=== PATIENT | male | born 2000 | race Caucasian/White ===

== ENCOUNTER 2020-02-27 21:52 | Emergency (ER) | payer OTHER ==
[~2020-02-27] VITALS: Ht 180.3 cm; Wt 79.5 kg
[2020-02-27] MEDS ORDERED: normal saline 1000ML IV soln IVB ONE (22:05)
[2020-02-27] MEDS ORDERED: LORazepam 2 mg/ml vial IV ONE ×2 (22:05→22:55)
[2020-02-27 22:23] LABS: BASOPHILS # (AUTO) 0.1 X10'3 (0-0.2); BASOPHILS % (AUTO) 0.7 % (0-1); EOSINOPHILS # (AUTO) 0.4 X10'3 (0-0.9); EOSINOPHILS % (AUTO) 2.9 % (0-6); HEMATOCRIT 46.5 % (42.0-52.0); HEMOGLOBIN 15.5 g/dl (14.0-17.9); LYMPHOCYTES # (AUTO) 4.9 X10'3 (1.1-4.8); LYMPHOCYTES % (AUTO) 37.6 % (21-51); MEAN CORPUSCULAR HEMOGLOBIN 29.8 PG (27.0-31.0); MEAN CORPUSCULAR HGB CONC 33.3 g/dL (33.0-36.5); MEAN CORPUSCULAR VOLUME 89.3 FL (78-98); MEAN PLATELET VOLUME 8.1 FL (7.4-10.4); MONOCYTES # (AUTO) 1.2 X10'3 (0-0.9); MONOCYTES % (AUTO) 9.4 % (2-12); NEUTROPHILS # (AUTO) 6.4 X10'3 (1.8-7.7); NEUTROPHILS % (AUTO) 49.4 % (42-75); PLATELET COUNT 332 X10'3 (140-440); RED BLOOD COUNT 5.21 X10'6 (4.70-6.10); RED CELL DISTRIBUTION WIDTH 13.3 % (11.5-14.5)
[2020-02-27 22:45] LABS: ALANINE AMINOTRANSFERASE 21 U/L (12-78); ALBUMIN 4.7 G/DL (3.4-5.0); ALBUMIN/GLOBULIN RATIO 1.5 (1.1-1.5); ALKALINE PHOSPHATASE 63 IU/L (20-180); ANION GAP 17 (8-16); ASPARTATE AMINO TRANSFERASE 17 U/L (10-37); BILIRUBIN,TOTAL 0.7 MG/DL (0.1-1.0); BLOOD UREA NITROGEN 15 MG/DL (7-18); BUN/CREATININE RATIO 13.8 (5.4-32.0); CALCIUM 8.8 MG/DL (8.5-10.1); CHLORIDE 108 MMOL/L (99-107); CREATININE 1.09 MG/DL (0.60-1.10); GLUCOSE 99 MG/DL (70-104); POTASSIUM 3.6 MMOL/L (3.5-5.1); SODIUM 145 MMOL/L (135-145); TOTAL CARBON DIOXIDE 19.8 MMOL/L (24-32); TOTAL PROTEIN 7.9 G/DL (6.4-8.2); eGFR 86 ML/MIN
[2020-02-27] MEDS ORDERED: ondansetron/PF 4mg/2ml inj IV ONE (22:50)
[2020-02-27 22:54] LABS: ETHANOL 0.223 GM/DL (0.0-0.010)
[2020-02-27 22:59] LABS: CLARITY,URINE CLEAR (Clear); COLOR,URINE STRAW (Yellow); GLUCOSE, URINE NEGATIVE (Neg); KETONES,URINE NEGATIVE (Neg); LEUKOCYTE ESTERASE ,URINE NEGATIVE (Neg); NITRITES, URINE NEGATIVE (Neg); OCCULT BLOOD,URINE NEGATIVE (Neg); PROTEIN,URINE NEGATIVE (Neg); UROBILINOGEN,URINE 0.2 E.U/dL (0.2-1.0)
[2020-02-27 23:00] LABS: ACETAMINOPHEN < 2.0 UG/ML (10-30)
[2020-02-27 23:00] LABS: UA COLLECTION TYPE CLN CATCH MIDSTREAM
[2020-02-27 23:03] LABS: URINE AMPHETAMINE SCREEN NEGATIVE (Neg); URINE BARBITUATE SCREEN NEGATIVE (Neg); URINE BENZODIAZEPINES SCREEN NEGATIVE (Neg); URINE CANNABINOID SCREEN NEGATIVE (Neg); URINE COCAINE SCREEN POSITIVE (Neg); URINE METHADONE SCREEN NEGATIVE (Neg); URINE OPIATE SCREEN NEGATIVE (Neg); URINE PHENCYCLIDINE SCREEN NEGATIVE (Neg)
--- NOTE | 2020-02-27 23:28 | NUR ---
PACKET FAXED TO [facility], FACE SHEET STILL NEEDS TO BE UPDATED.
--- NOTE | 2020-02-28 06:29 | NUR ---
Patient brought over from main ER to bed 26. Patient is sitting on the side of the bed, shivering, warm blanket provided.
--- NOTE | 2020-02-28 09:11 | NUR ---
Patient awoke for breakfast. Patient only wants to know when he can leave. Sleeping on right side now.
--- NOTE | 2020-02-28 10:09 | NUR ---
breaking primary RN. pt is sitting up in bed, drinking water, calm, no agitation observed, no needs at this time
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
[2020-02-28 11:59] VITALS: BP 115/75
== END 2020-02-28 12:18 | disposition home or self-care (01) ==
LOC: ER 21:53
DX: S41.112A Laceration without foreign body of left upper arm, initial encounter (principal); S41.111A Laceration without foreign body of right upper arm, initial encounter; R45.851 Suicidal ideations; F10.129 Alcohol abuse with intoxication, unspecified; Y90.0 Blood alcohol level of less than 20 mg/100 ml; F31.9 Bipolar disorder, unspecified; Z88.8 Allergy status to other drugs, medicaments and biological substances; W45.8XXA Other foreign body or object entering through skin, initial encounter; Y93.89 Activity, other specified; Y92.89 Other specified places as the place of occurrence of the external cause; Y99.8 Other external cause status
CPT/HCPCS: 36415; 80053; 80178; 80305; 80320; 80329; 81003; 84443; 85025; 96361; 96374; 96375; 96376; 99285; J2060; J2405; J7030; 93005

== ENCOUNTER 2022-07-20 13:47 | Emergency (ER) | payer OTHER ==
[~2022-07-20] VITALS: Ht 188 cm; Wt 79.0 kg
[2022-07-20 13:50] VITALS: BP 115/82
[2022-07-20] MEDS ORDERED: iohexol 300mg/ml 100ml inj. ONE (15:12)
[2022-07-20 15:38] LABS: BASOPHILS # (AUTO) 0.1 X10'3 (0-0.2); BASOPHILS % (AUTO) 0.4 % (0-1); EOSINOPHILS % (AUTO) 0.2 % (0-6); HEMATOCRIT 44.4 % (42.0-52.0); HEMOGLOBIN 14.8 g/dl (14.0-17.9); LYMPHOCYTES # (AUTO) 1.1 X10'3 (1.1-4.8); LYMPHOCYTES % (AUTO) 5.5 % (21-51); MEAN CORPUSCULAR HEMOGLOBIN 30.5 PG (27.0-31.0); MEAN CORPUSCULAR HGB CONC 33.3 g/dL (33.0-36.5); MEAN CORPUSCULAR VOLUME 91.4 FL (78-98); MEAN PLATELET VOLUME 7.7 FL (7.4-10.4); MONOCYTES # (AUTO) 1.8 X10'3 (0-0.9); MONOCYTES % (AUTO) 8.8 % (2-12); NEUTROPHILS # (AUTO) 17.1 X10'3 (1.8-7.7); NEUTROPHILS % (AUTO) 85.1 % (42-75); PLATELET COUNT 280 X10'3 (140-440); RED BLOOD COUNT 4.85 X10'6 (4.70-6.10); RED CELL DISTRIBUTION WIDTH 14.5 % (11.5-14.5)
[2022-07-20 16:01] LABS: ALANINE AMINOTRANSFERASE 62 U/L (12-78); ALBUMIN 3.8 G/DL (3.4-5.0); ALKALINE PHOSPHATASE 77 IU/L (46-116); ANION GAP 9 (8-16); ASPARTATE AMINO TRANSFERASE 25 U/L (10-37); BILIRUBIN,TOTAL 0.7 MG/DL (0.1-1.0); BLOOD UREA NITROGEN 7 MG/DL (7-18); BUN/CREATININE RATIO 7.8 (5.4-32.0); CALCIUM 8.6 MG/DL (8.5-10.1); CHLORIDE 101 MMOL/L (99-107); GLUCOSE 101 MG/DL (70-104); POTASSIUM 3.7 MMOL/L (3.5-5.1); SODIUM 136 MMOL/L (135-145); TOTAL CARBON DIOXIDE 25.9 MMOL/L (24-32); TOTAL PROTEIN 7.5 G/DL (6.4-8.2); eGFR > 90 ML/MIN
[2022-07-20] MEDS ORDERED: BENZ-38 PO (16:05)
[2022-07-20 16:09] LABS: MONOTEST NEGATIVE (Neg)
[2022-07-20] MEDS ORDERED: ibuprofen 200mg tablet PO ONE (16:25)
[2022-07-20 16:36] LABS: TOTAL CELLS COUNTED 100
[2022-07-20 16:37] LABS: PLATELET ESTIMATE NORMAL
== END 2022-07-20 16:43 | disposition home or self-care (01) ==
LOC: ER 13:48
DX: J20.9 Acute bronchitis, unspecified (principal); Z20.822 Contact with and (suspected) exposure to COVID-19; M54.2 Cervicalgia; F31.9 Bipolar disorder, unspecified; Z79.899 Other long term (current) drug therapy; Z88.8 Allergy status to other drugs, medicaments and biological substances
CPT/HCPCS: 36415; 70491; 80053; 85007; 85025; 86308; 87081; 87635; 87880; 99285; C9803; J3490; Q9967

== ENCOUNTER 2023-01-16 21:25 | Emergency (ER) | payer OTHER ==
[~2023-01-16] VITALS: Ht 188 cm; Wt 77.2 kg
[2023-01-16] MEDS ORDERED: normal saline 1000ML IV soln IVB ONE (22:20)
[2023-01-16] MEDS ORDERED: acetaminophen 325mg tablet PO ONE (22:20)
[2023-01-16] MEDS ORDERED: ketorolac trometh. 30mg/ml inj. IV ONE (22:20)
[2023-01-16 22:37] LABS: BASOPHILS # (AUTO) 0.2 X10'3 (0-0.2); EOSINOPHILS # (AUTO) 0.1 X10'3 (0-0.9); EOSINOPHILS % (AUTO) 0.5 % (0-6); HEMATOCRIT 43.5 % (42.0-52.0); HEMOGLOBIN 14.5 g/dl (14.0-17.9); LYMPHOCYTES # (AUTO) 1.3 X10'3 (1.1-4.8); LYMPHOCYTES % (AUTO) 7.7 % (21-51); MEAN CORPUSCULAR HEMOGLOBIN 30.1 PG (27.0-31.0); MEAN CORPUSCULAR HGB CONC 33.4 g/dL (33.0-36.5); MEAN CORPUSCULAR VOLUME 90.2 FL (78-98); MEAN PLATELET VOLUME 7.5 FL (7.4-10.4); MONOCYTES % (AUTO) 11.6 % (2-12); NEUTROPHILS # (AUTO) 13.9 X10'3 (1.8-7.7); NEUTROPHILS % (AUTO) 79.2 % (42-75); PLATELET COUNT 292 X10'3 (140-440); RED BLOOD COUNT 4.82 X10'6 (4.70-6.10); RED CELL DISTRIBUTION WIDTH 13.9 % (11.5-14.5); WHITE BLOOD COUNT 17.5 X10'3 (4.5-11.0)
[2023-01-16 22:50] LABS: ALANINE AMINOTRANSFERASE 30 U/L (12-78); ALBUMIN 3.8 G/DL (3.4-5.0); ALBUMIN/GLOBULIN RATIO 1.2 (1.1-1.5); ALKALINE PHOSPHATASE 68 IU/L (46-116); ANION GAP 10 (8-16); ASPARTATE AMINO TRANSFERASE 19 U/L (10-37); BILIRUBIN,TOTAL 0.4 MG/DL (0.1-1.0); BLOOD UREA NITROGEN 9 MG/DL (7-18); BUN/CREATININE RATIO 8.3 (10.0-20.0); CALCIUM 8.6 MG/DL (8.5-10.1); CHLORIDE 102 MMOL/L (99-107); CREATININE 1.08 MG/DL (0.60-1.10); GLUCOSE 106 MG/DL (70-104); POTASSIUM 3.5 MMOL/L (3.5-5.1); SODIUM 137 MMOL/L (135-145); TOTAL CARBON DIOXIDE 25.5 MMOL/L (24-32); eGFR 85 ML/MIN
[2023-01-16 22:57] LABS: D-DIMER < 0.19 MG/L FEU (0-0.50)
[2023-01-17] MEDS ORDERED: ONDA4TAB12 PO (00:02)
[2023-01-17 00:15] VITALS: BP 126/78
== END 2023-01-17 00:17 | disposition home or self-care (01) ==
LOC: ER 21:25
DX: B34.9 Viral infection, unspecified (principal); Z20.822 Contact with and (suspected) exposure to COVID-19; R42 Dizziness and giddiness; R11.2 Nausea with vomiting, unspecified; R07.89 Other chest pain; R06.02 Shortness of breath; Z72.89 Other problems related to lifestyle
CPT/HCPCS: 71045; 80053; 84484; 85025; 85379; 87081; 87502; 87503; 87811; 87880; 93005; 96361; 96374; 99285; J1885; J7030

== ENCOUNTER 2024-04-14 13:01 | Emergency (ER) | payer OTHER ==
[~2024-04-14] VITALS: Ht 185.4 cm; Wt 82.1 kg
[~2024-04-14 13:01] MED LIST: ONDA-243 PO
[2024-04-14 13:18] VITALS: BP 136/77; PULSE 94; RESP 16; TEMP 98.1; O2SAT 97
[2024-04-14] MEDS ORDERED: DOXY-225 PO (14:57)
== END 2024-04-14 15:17 | disposition home or self-care (01) ==
LOC: ER 13:02
DX: S60.450A Superficial foreign body of right index finger, initial encounter (principal); F32.A Depression, unspecified; F10.90 Alcohol use, unspecified, uncomplicated; Z88.8 Allergy status to other drugs, medicaments and biological substances; W45.8XXA Other foreign body or object entering through skin, initial encounter; Y93.89 Activity, other specified; Y92.89 Other specified places as the place of occurrence of the external cause; Y99.8 Other external cause status
CPT/HCPCS: 99284